=== PATIENT | female | born 1975 | race Caucasian/White ===

== ENCOUNTER → 2016-09-29 | Outpatient (CLI) | payer MEDICAID ==
--- NOTE | 2016-09-30 15:58 | XR ---
EXAMINATION TYPE: XR femur RT DATE OF EXAM: 09/29/2016 CLINICAL HISTORY: pain TECHNIQUE: Two views of the right femur are obtained. COMPARISON: None. FINDINGS: There is no acute fracture or dislocation seen of the femur. The hip and knee joints appear within normal limits. The overlying soft tissue appears unremarkable. IMPRESSION: There is no acute fracture or dislocation seen of the femur. ICD 10 NO FRACTURE, INITIAL EVALUATION
== END | disposition home or self-care (01) ==
LOC: RADXRYALE 08:36
PROVIDERS: ATTEND Physician Assistant Medical
DX: S89.91XA Unspecified injury of right lower leg, initial encounter (principal); X58.XXXA Exposure to other specified factors, initial encounter

== ENCOUNTER → 2018-03-22 | Outpatient (CLI) | payer MEDICAID ==
--- NOTE | 2018-03-23 14:39 | MM ---
Reason for exam: screening (asymptomatic). Last mammogram was performed 3 years and 2 months ago. History: Benign excisional biopsy of the right breast, 1998. Physical Findings: A clinical breast exam by your physician is recommended on an annual basis and results should be correlated with mammographic findings. MG Screening Mammo w CAD Bilateral CC and MLO view(s) were taken. Prior study comparison: January 28, 2015, bilateral MG screening mammo w CAD. The breast tissue is heterogeneously dense. This may lower the sensitivity of mammography. There is no discrete abnormality. No significant changes when compared with prior studies. ASSESSMENT: Negative, BI-RAD 1 RECOMMENDATION: Routine screening mammogram of both breasts in 1 year.
== END | disposition home or self-care (01) ==
LOC: RADMAMWWP 16:47
PROVIDERS: ATTEND Obstetrics & Gynecology
DX: Z12.31 Encounter for screening mammogram for malignant neoplasm of breast (principal)
CPT/HCPCS: 77067

== ENCOUNTER → 2018-12-19 | Outpatient (CLI) | payer MEDICAID ==
--- NOTE | 2018-12-20 08:49 | XR ---
EXAMINATION TYPE: XR ribs RT w pa chest xray DATE OF EXAM: 12/19/2018 CLINICAL HISTORY: Cough and intercostal chest pain. TECHNIQUE: Single frontal view of the chest is obtained. 2 views of the right ribs were also obtained . COMPARISON: 05/18/2013 FINDINGS: There is no focal air space opacity, pleural effusion, or pneumothorax seen. The cardiac silhouette size is within normal limits. No acute displaced rib fracture nor callous healed rib fract ure deformity is seen. Mild dextroscoliosis of the thoracic spine and levoscoliosis of the thoracolum bar junction is noted, which could be positional. IMPRESSION: 1. No focal consolidation to suggest pneumonia. 2. No acute displaced right rib fracture nor calyceal fracture deformity. 3. Incidentally noted mild S-shaped scoliosis of the visualized thoracolumbar spine.
== END | disposition home or self-care (01) ==
LOC: RADXRYALE 14:05
PROVIDERS: ATTEND Physician Assistant Medical
DX: R05 Cough (principal); R07.82 Intercostal pain; R07.9 Chest pain, unspecified

== ENCOUNTER 2019-07-20 14:35 | Observation (INO) | payer MEDICAID ==
--- NOTE | 2019-07-20 15:46 | XR ---
EXAMINATION TYPE: XR chest 2V DATE OF EXAM: 07/20/2019 COMPARISON: NONE HISTORY: Chest pain TECHNIQUE: Frontal and lateral views of the chest are obtained. FINDINGS: There is no focal air space opacity. No evidence for pneumothorax. No pleural effusion. The cardiac silhouette size is within normal limits. The osseous structures are grossly intact. IMPRESSION: 1. No acute cardiopulmonary process.
[2019-07-20 16:07] LABS: Basophils % (A) 1 %; Eosinophils # (A) 0.1 k/uL (0-0.7); Eosinophils % (A) 1 %; HCT 47.3 % (34.0-46.0); HGB 15.3 gm/dL (11.4-16.0); Lymphocytes # (A) 2.1 k/uL (1.0-4.8); Lymphocytes % (A) 30 %; MCH 30.8 pg (25.0-35.0); MCHC 32.3 g/dL (31.0-37.0); MCV 95.4 fL (80.0-100.0); Mean Platelet Volume 7.3; Monocytes # (A) 0.3 k/uL (0-1.0); Monocytes % (A) 5 %; Neutrophils # (A) 4.2 k/uL (1.3-7.7); Neutrophils % (A) 62 %; Platelet Count 307 k/uL (150-450); RBC 4.95 m/uL (3.80-5.40); WBC 6.8 k/uL (3.8-10.6)
[2019-07-20 16:16] LABS: ALT 41 U/L (4-34); AST 29 U/L (14-36); African American GFR (CKD) >90 (>60 ml/min/1.73 sqM); Albumin 4.8 g/dL (3.5-5.0); Alkaline Phosphatase 74 U/L (38-126); Anion Gap 7 mmol/L; Blood Urea Nitrogen 20 mg/dL (7-17); Calcium 10.1 mg/dL (8.4-10.2); Carbon Dioxide 31 mmol/L (22-30); Chloride 103 mmol/L (98-107); Glucose 87 mg/dL (74-99); Magnesium 2.1 mg/dL (1.6-2.3); Non-African American GFR(CKD) >90 (>60 ml/min/1.73 sqM); Potassium 3.9 mmol/L (3.5-5.1); Sodium 141 mmol/L (137-145); Total Bilirubin 0.5 mg/dL (0.2-1.3); Total Protein 7.8 g/dL (6.3-8.2)
--- NOTE | 2019-07-20 16:19 | ED ---
Chest Pain HPI - General Chief Complaint: Chest Pain Stated Complaint: lung pain Time Seen by Provider: 07/20/19 15:09 Source: patient, RN notes reviewed, old records reviewed Mode of arrival: ambulatory Limitations: no limitations - History of Present Illness Initial Comments: This is a 44-year-old female DF for evaluation. She presents today for eval uation of chest. Patient also admits to some anxiety concern that she may have been exposed or has coronavirus. Patient has no medical history patient has no history of heart disease but she is also concerned that she has a problem with her heart today. She states her family male with family history. No current fevers no cough no shortness of breath MD Complaint: chest pain -: hour(s) Onset: during rest, during exertion Pain Location: left chest Pain Radiation: LUE Severity: moderate Severity scale (1-10): 7 Quality: sharp Consistency: constant Improves With: nothing Worsens With: exertion, inspiration Anginal Symptoms: nausea, dyspnea Other Symptoms: cough Treatments Prior to Arrival: none - Related Data Home Medications Medication Instructions Recorded Confirmed Acetaminophen Tab [Tylenol] 325 mg PO ONCE PRN 07/20/19 07/20/19 traZODone HCL 50 mg PO HS 07/20/19 07/20/19 Previous Rx's Medication Instructions Recorded Atorvastatin [Lipitor] 20 mg PO HS #30 tab 07/21/19 Hydrochlorothiazide [Hydrodiuril] 25 mg PO DAILY #30 tab 07/21/19 Lisinopril [Zestril] 20 mg PO DAILY #30 tab 07/21/19 Allergies Allergy/AdvReac Type Severity Reaction Status Date / Time pentazocine [From Talwin] Allergy Rash/Hives Verified 07/20/19 16:18 tramadol [From Ultram] AdvReac Nausea & Verified 07/20/19 16:18 Vomiting Review of Systems ROS Statement: Those systems with pertinent positive or pertinent negative responses have been documented in the HPI. ROS Other: All systems not noted in ROS Statement are negative. EKG Findings - EKG Comments: EKG Findings:: EKG shows sinus rhythm of 89, AL 146, QRS 80, QTC 4:30 Past Medical History Past Medical History: Hypertension History of Any Multi-Drug Resistant Organisms: None Reported Past Surgical History: Back Surgery, Tubal Ligation Additional Past Surgical History / Comment(s): right breast biopsy, abdominal surgery for ovarian cyst Past Psychological History: Anxiety Smoking Status: Never smoker Past Alcohol Use History: None Reported Past Drug Use History: None Reported - Past Family History Mother Family Medical History: Hypertension Additional Family Medical History / Comment(s): lung cancer Father Family Medical History: Hypertension Additional Family Medical History / Comment(s): prostate cancer, depression General Exam Limitations: no limitations General appearance: alert, in no apparent distress, anxious Head exam: Present: atraumatic, normocephalic, normal inspection Eye exam: Present: normal appearance, PERRL, EOMI. Absent: scleral icterus, conjunctival injection, periorbital swelling ENT exam: Present: normal exam, mucous membranes moist Neck exam: Present: normal inspection. Absent: tenderness, meningismus, lymphadenopathy Respiratory exam: Present: normal lung sounds bilaterally. Absent: respiratory distress, wheezes, rales, rhonchi, stridor Cardiovascular Exam: Present: regular rate, normal rhythm, normal heart sounds. Absent: systolic murmur, diastolic murmur, rubs, gallop, clicks GI/Abdominal exam: Present: soft, normal bowel sounds. Absent: distended, tenderness, guarding, rebound, rigid Extremities exam: Present: normal inspection, full ROM, normal capillary refill. Absent: tenderness, pedal edema, joint swelling, calf tenderness Back exam: Present: normal inspection Neurological exam: Present: alert, oriented X3, CN II-XII intact Psychiatric exam: Present: normal affect, normal mood Skin exam: Present: warm, dry, intact, normal color. Absent: rash Course Vital Signs 07/20/19 07/20/19 07/20/19 14:51 15:16 15:58 Temperature 98.3 F Pulse Rate 94 86 90 Pulse Rate [ Pulse Oximetery ] Respiratory 18 18 18 Rate Blood Pressure 178/99 156/107 182/107 Blood Pressure [Left Arm] O2 Sat by Pulse 100 98 98 Oximetry 07/20/19 07/20/19 07/20/19 17:19 18:20 19:09 Temperature 98.5 F Pulse Rate 88 84 89 Pulse Rate [ Pulse Oximetery ] Respiratory 18 16 17 Rate Blood Pressure 138/98 167/101 157/99 Blood Pressure [Left Arm] O2 Sat by Pulse 96 99 98 Oximetry 07/20/19 07/20/19 19:55 20:00 Temperature 98.2 F Pulse Rate 78 Pulse Rate [ 72 Pulse Oximetery ] Respiratory 16 18 Rate Blood Pressure 141/104 Blood Pressure 142/105 [Left Arm] O2 Sat by Pulse 99 98 Oximetry - Reevaluation(s) Reevaluation #1: Medical record is reviewed Patient has persistent chest pain currently Patient given off her to stay in the hospital for observation, she is not comfortable with discharge home Chest Pain MDM - MDM 44 female to the ER does have chest pain currently. Chest is resolved. Computed tomography scan troponin, EKG are negative [place] for cardiac observation Critical Care Time Critical Care Time: Yes Total Critical Care Time: 31 Disposition Clinical Impression: Chest pain Disposition: ADMITTED IP TO THIS HOSP Condition: Stable Is patient prescribed a controlled substance at d/c from ED?: No
[2019-07-20] MEDS ORDERED: SODIUM CHLORIDE 0.9% 1,000 ML IV STA (16:20)
[2019-07-20 16:21] LABS: D-Dimer 0.22 mg/L FEU (<0.60); INR 0.9 (<1.2); Partial Thromboplastin Time 24.3 sec (22.0-30.0); Prothrombin Time 9.6 sec (9.0-12.0)
--- NOTE | 2019-07-20 16:48 | CT ---
CT CHEST FOR PULMONARY EMBOLISM. EXAMINATION TYPE: CT angio chest DATE OF EXAM: 07/20/2019 INDICATION: Chest pain, hypertension CT DLP: 200.3 mGycm, Automated exposure control for dose reduction was used. CONTRAST: Patient injected with 80 mL of Isovue 370. COMPARISON: None TECHNIQUE: CT of the chest is performed on a spiral scan at 2 mm thick sections. Study is performed with intravenous contrast timed for evaluation for pulmonary embolism. This will limit additional po rtions of the evaluation. 3-D MIP images reconstructed by the technologist are reviewed on the compu ter in the coronal and sagittal planes. FINDINGS: No persistent filling defects are evident to suggest an acute pulmonary embolism. No mediastinal or hilar adenopathy enlarged by CT criteria is evident. The ascending aorta diameter at the level of the main pulmonary artery is 3.4 cm. The main pulmonary artery diameter at the bifur cation is 2.6 cm. Lung windows are clear. Limited CT section through the upper abdomen are unremarkable. IMPRESSIONS: 1. No acute pulmonary embolism. 2. CTA chest is normal.
[2019-07-20] MEDS ORDERED: ASPIRIN 81 MG PO STA (18:42)
[2019-07-20] MEDS ORDERED: NITROGLYCERIN SL TABS 0.4 MG TAB SUBLINGUAL PRN (18:42)
[2019-07-20] MEDS ORDERED: METOPROLOL TARTRATE 50 MG TAB PO SCH (21:00)
[2019-07-21 00:52] VITALS: TEMP 98
[2019-07-21 04:35] LABS: Cholesterol 176 mg/dL (<200); HDL Cholesterol 54 mg/dL (40-60); LDL Cholesterol,Calculated 102 mg/dL (0-99); Triglycerides 99 mg/dL (<150)
[2019-07-21] MEDS ORDERED: ATORVASTATIN 20 MG TAB PO SCH (09:00)
[2019-07-21] MEDS ORDERED: HYDROCHLOROTHIAZIDE 25 MG TAB PO SCH (09:00)
[2019-07-21] MEDS ORDERED: ASPIRIN 325 MG TAB PO SCH (09:00)
[2019-07-21] MEDS ORDERED: LISINOPRIL 20 MG TAB PO SCH (09:00)
[2019-07-21 12:44] VITALS: BP 143/94; PULSE 66; RESP 18
--- NOTE | 2019-07-21 14:25 | P.CRDCN ---
History of Present Illness History of present illness: This is Dr. Arevalo dictating a consult on this patient The patient was interviewed and examined by me IMPRESSION / ASSESSMENT: Patient admitted with chest discomfort with normal cardiac enzymes normal first EKG Elevated blood pressure readings history of hypertension Mildly increased LDL Never smoker PLAN: Hypertension management, continue lisinopril 20 mg by mouth daily Add hydrochlorothiazide Start atorvastatin 20 mg by mouth daily Discontinue metoprolol Switched to baby aspirin Outpatient reevaluation with Dr. Dr. Arevalo for blood pressure management Further cardiac workup HPI 44-year-old female with hypertension admitted from the ER with a history of chest discomfort Chest x-ray was normal chest CT was normal Subsequently blood pressure 148/89 and 141/85 mmHg ROS: No fever chills or rigors, no cough, phlegm or expectoration, no nausea, vomiting or diarrhea, no hematuria, dysuria, no musculoskeletal complaints, no strokes or seizures, no skin lesions. EXAMINATION: 141/85, pulse rate in the 60s afebrile normal respirations Patient resting comfort no orthopnea PND No JVD Breath soundles Normal heart Extremities warm no shi REVIEW OF LABS, ECG & MEDICAL DATA Normal white count, hematocrit 47, platelet count 307,000 Coronavirus PCR not detected LDL 102, HDL 54 total cholesterol 176 triglycerides 99 Sodium 141 BUN 20 creatinine 0.65 Normal cardiac enzymes 3 Normal liver function Normal chest x-ray Normal chest CT EKG shows sinus mechanism normal CO narrow QRS early repolarization abnormality inferolaterally Past Medical History Past Medical History: Asthma, Chest Pain / Angina, GERD/Reflux, Hypertension, Pneumonia Additional Past Medical History / Comment(s): history of migrains History of Any Multi-Drug Resistant Organisms: None Reported Past Surgical History: Back Surgery, Tubal Ligation Additional Past Surgical History / Comment(s): right breast biopsy, abdominal surgery for ovarian cyst, surgery for cyst in right heel. Additional Past Anesthesia/Blood Transfusion Reaction / Comment(s): never had a blood transfusion Past Psychological History: Anxiety Smoking Status: Never smoker Past Alcohol Use History: None Reported Past Drug Use History: None Reported - Past Family History Mother Family Medical History: Hypertension Additional Family Medical History / Comment(s): lung cancer Father Family Medical History: Hypertension Additional Family Medical History / Comment(s): prostate cancer, depression Medications and Allergies Home Medications Medication Instructions Recorded Confirmed Type Acetaminophen Tab [Tylenol] 325 mg PO ONCE PRN 07/20/19 07/20/19 History traZODone HCL 50 mg PO HS 07/20/19 07/20/19 History Atorvastatin [Lipitor] 20 mg PO HS #30 tab 07/21/19 Rx Hydrochlorothiazide [Hydrodiuril] 25 mg PO DAILY #30 tab 07/21/19 Rx Lisinopril [Zestril] 20 mg PO DAILY #30 tab 07/21/19 Rx Allergies Allergy/AdvReac Type Severity Reaction Status Date / Time pentazocine [From Talwin] Allergy Rash/Hives Verified 07/20/19 16:18 tramadol [From Ultram] AdvReac Nausea & Verified 07/20/19 16:18 Vomiting Physical Exam Vitals: Vital Signs Temp Pulse Pulse Resp BP BP Pulse Ox 07/21/19 04:00 98.0 F 61 15 141/85 97 07/21/19 00:00 98.0 F 61 15 148/89 98 07/20/19 20:00 78 18 141/104 98 07/20/19 19:55 98.2 F 72 16 142/105 99 07/20/19 19:09 89 17 157/99 98 07/20/19 18:20 98.5 F 84 16 167/101 99 07/20/19 17:19 88 18 138/98 96 07/20/19 15:58 90 18 182/107 98 07/20/19 15:16 86 18 156/107 98 07/20/19 14:51 98.3 F 94 18 178/99 100 Intake and Output 07/20/19 07/21/19 07/21/19 22:59 06:59 14:59 Other: Voiding Method Toilet # Voids 1 1 Weight 50.802 kg 52.4 kg Results 07/20/19 15:54 07/20/19 15:54 Cardiac Enzymes 07/20/19 07/20/19 07/20/19 Range/Units 15:54 15:54 22:43 AST 29 (14-36) U/L Troponin I <0.012 <0.012 (0.000-0.034) ng/mL 07/21/19 Range/Units 03:39 AST (14-36) U/L Troponin I <0.012 (0.000-0.034) ng/mL Coagulation 07/20/19 Range/Units 15:54 PT 9.6 (9.0-12.0) sec APTT 24.3 (22.0-30.0) sec Lipids 07/21/19 Range/Units 03:39 Triglycerides 99 (<150) mg/dL Cholesterol 176 (<200) mg/dL HDL Cholesterol 54 (40-60) mg/dL CBC 07/20/19 Range/Units 15:54 WBC 6.8 (3.8-10.6) k/uL RBC 4.95 (3.80-5.40) m/uL Hgb 15.3 (11.4-16.0) gm/dL Hct 47.3 H (34.0-46.0) % Plt Count 307 (150-450) k/uL Comprehensive Metabolic Panel 07/20/19 Range/Units 15:54 Sodium 141 (137-145) mmol/L Potassium 3.9 (3.5-5.1) mmol/L Chloride 103 (98-107) mmol/L Carbon Dioxide 31 H (22-30) mmol/L BUN 20 H (7-17) mg/dL Creatinine 0.65 (0.52-1.04) mg/dL Glucose 87 (74-99) mg/dL Calcium 10.1 (8.4-10.2) mg/dL AST 29 (14-36) U/L ALT 41 H (4-34) U/L Alkaline Phosphatase 74 (38-126) U/L Total Protein 7.8 (6.3-8.2) g/dL Albumin 4.8 (3.5-5.0) g/dL Current Medications Generic Name Dose Route Start Last Admin Trade Name Freq PRN Reason Stop Dose Admin Aspirin 325 mg 07/21/19 09:00 Aspirin PO DAILY [facility] Atorvastatin Calcium 20 mg 07/21/19 09:00 Lipitor PO DAILY [facility] Metoprolol Tartrate 50 mg 07/20/19 21:00 07/20/19 22:02 Lopressor PO 50 mg BID [facility] Administration Nitroglycerin 0.4 mg 07/20/19 18:42 Nitrostat SUBLINGUAL Q5M PRN Chest Pain Intake and Output 07/20/19 07/21/19 07/21/19 22:59 06:59 14:59 Other: Voiding Method Toilet # Voids 1 1 Weight 50.802 kg 52.4 kg 07/20/19 15:54 07/20/19 15:54
--- NOTE | 2019-07-30 12:47 | P.HPIM ---
History of Present Illness H&P Date: 07/21/19 Chief Complaint: Chest pain Patient is a 44-year-old female with a known history of asthma, hypertension, GERD and history of chest pain and anxiety came to ER with the complaints of chest discomfort mainly right upper chest and across the upper chest and to the arms. Chest pain was associated with minimal shortness of breath. Denied any dizziness or lightheadedness. Patient felt nauseous. No diaphoresis. No leg swelling. No history of prior stent placement. Blood pressure was elevated with SBP in 180s on admission. Denied any complaints of fever. No cough or sputum production. Denied any exposure to sick Patients. No history of recent travel. Chest x-ray showed no acute cardio pulmonary process. CT angiogram showed no pulmonary embolism. Troponin 3 negative EKG showed normal sinus rhythm with sinus arrhythmia. LDL is 102 Covid 19 PCR is negative. D-dimer is not elevated. Review of Systems Constitutional: Patient denies any fever or chills . No generalized weakness or weight loss. Abdomen: Patient denied nausea vomiting and diarrhea and abdominal pain. Cardiovascular: Patient does have a right-sided chest pain. No short of breath no palpitations. Respiratory: patient denied any cough is from production. No shortness of breath Neurologic: Patient denied any numbness or tingling headache. Musculoskeletal: Patient denies any complaints of joint swelling or deformity. Skin: Negative Psychiatric: Negative Endocrine: No heat or cold intolerance. No recent weight gain. Genitourinary: No dysuria or hematuria. All other 14 point ROS negative except the above Past Medical History Past Medical History: Asthma, Chest Pain / Angina, GERD/Reflux, Hypertension, Pneumonia Additional Past Medical History / Comment(s): history of migrains History of Any Multi-Drug Resistant Organisms: None Reported Past Surgical History: Back Surgery, Tubal Ligation Additional Past Surgical History / Comment(s): right breast biopsy, abdominal surgery for ovarian cyst, surgery for cyst in right heel. Additional Past Anesthesia/Blood Transfusion Reaction / Comment(s): never had a blood transfusion Past Psychological History: Anxiety Smoking Status: Never smoker Past Alcohol Use History: None Reported Past Drug Use History: None Reported - Past Family History Mother Family Medical History: Hypertension Additional Family Medical History / Comment(s): lung cancer Father Family Medical History: Hypertension Additional Family Medical History / Comment(s): prostate cancer, depression Medications and Allergies Home Medications Medication Instructions Recorded Confirmed Type Acetaminophen Tab [Tylenol] 325 mg PO ONCE PRN 07/20/19 07/20/19 History traZODone HCL 50 mg PO HS 07/20/19 07/20/19 History Atorvastatin [Lipitor] 20 mg PO HS #30 tab 07/21/19 Rx Hydrochlorothiazide [Hydrodiuril] 25 mg PO DAILY #30 tab 07/21/19 Rx Lisinopril [Zestril] 20 mg PO DAILY #30 tab 07/21/19 Rx Allergies Allergy/AdvReac Type Severity Reaction Status Date / Time pentazocine [From Talwin] Allergy Rash/Hives Verified 07/20/19 16:18 tramadol [From Ultram] AdvReac Nausea & Verified 07/20/19 16:18 Vomiting Physical Exam Vitals: Vital Signs Temp Pulse Pulse Resp BP BP Pulse Ox 07/21/19 08:00 77 17 138/89 99 07/21/19 04:00 98.0 F 61 15 141/85 97 07/21/19 00:00 98.0 F 61 15 148/89 98 07/20/19 20:00 78 18 141/104 98 07/20/19 19:55 98.2 F 72 16 142/105 99 07/20/19 19:09 89 17 157/99 98 07/20/19 18:20 98.5 F 84 16 167/101 99 07/20/19 17:19 88 18 138/98 96 07/20/19 15:58 90 18 182/107 98 07/20/19 15:16 86 18 156/107 98 07/20/19 14:51 98.3 F 94 18 178/99 100 Intake and Output 07/20/19 07/21/19 07/21/19 22:59 06:59 14:59 Other: Voiding Method Toilet # Voids 1 1 Weight 50.802 kg 52.4 kg PHYSICAL EXAMINATION: Patient is lying in the bed comfortably, no acute distress, awake alert and oriented.. HEENT: Normocephalic. Neck is supple. Pupils reactive. Nostrils clear. Oral cavity is moist. Ears reveal no drainage. Neck reveals no JVD, carotid bruits, or thyromegaly. CHEST EXAMINATION: Trachea is central. Symmetrical expansion. Lung [place] clear to auscultation and percussion. CARDIAC: Normal S1, S2 with no gallops. No murmurs ABDOMEN: Soft. Bowel sounds normal. No organomegaly. No abdominal bruits. Extremities: reveal no edema. No clubbing or cyanosis Neurologically awake, alert, oriented x3 with well-coordinated movements. No focal deficits noted Skin: No rash or skin lesions. Psychiatric: Coperative. Nonsuicidal Musculoskeletal: No joint swelling or deformity. Normal range of motion. Results CBC & Chem 7: 07/20/19 15:54 07/20/19 15:54 Labs: Abnormal Lab Results - Last 24 Hours (Table) 07/20/19 07/20/19 07/21/19 Range/Units 15:54 15:54 03:39 Hct 47.3 H (34.0-46.0) % Carbon Dioxide 31 H (22-30) mmol/L BUN 20 H (7-17) mg/dL ALT 41 H (4-34) U/L LDL Cholesterol, Calc 102 H (0-99) mg/dL Thrombosis Risk Factor Assmnt - DVT/VTE Prophylaxis DVT/VTE Prophylaxis: Pharmacologic Prophylaxis ordered - Choose All That Apply Any of the Below Risk Factors Present?: Yes Each Factor Represents 1 point: or Other Risk Factors: No Other congenital or acquired thrombophilia - If yes, enter type in comment: No Thrombosis Risk Factor Assessment Total Risk Factor Score: 1 Thrombosis Risk Factor Assessment Level: Low Risk Assessment and Plan Assessment: Atypical chest pain/discomfort ruled out ACS. Uncontrolled hypertension Hyperlipidemia with LDL 102. GERD Asthma. Stable DVT prophylaxis with heparin subcu Anxiety No history of prior smoking Plan: Patient is being continued on telemetry monitoring. Continue with home dose of this 20 mg daily and added hydrochlorothiazide. Cardiology was consulted. Patient was started on aspirin 81 mg daily. Troponin 3 negative and d-dimer is not elevated. CT angiogram is negative as well. Further recommendations based on the clinical course. Titrate blood pressure medications. Time with Patient: Greater than 30
--- NOTE | 2019-07-30 12:49 | P.DS ---
Providers Date of admission: 07/20/19 18:44 Expected date of discharge: 07/20/18 Attending physician: Kenya Quan Consults: 07/20/19 18:43 Consult Physician Urgent Consulting Provider: Bev Taylor Consult Reason/Comments: cp Do you want consulting provider notified?: Yes [facility] Course: Discharge diagnosis Atypical chest pain/discomfort ruled out ACS. Uncontrolled hypertension Hyperlipidemia with LDL 102. GERD Asthma. Stable DVT prophylaxis with heparin subcu Anxiety No history of prior smoking Hospital course Patient is a 44-year-old female with a known history of asthma, hypertension, GERD and history of chest pain and anxiety came to ER with the complaints of chest discomfort mainly right upper chest and across the upper chest and to the arms. Chest pain was associated with minimal shortness of breath. Denied any dizziness or lightheadedness. Patient felt nauseous. No diaphoresis. No leg swelling. No history of prior stent placement. Blood pressure was elevated with SBP in 180s on admission. Denied any complaints of fever. No cough or sputum production. Denied any exposure to sick Patients. No history of recent travel. Chest x-ray showed no acute cardio pulmonary process. CT angiogram showed no pulmonary embolism. Troponin 3 negative EKG showed normal sinus rhythm with sinus arrhythmia. LDL is 102 Covid 19 PCR is negative. D-dimer is not elevated. Patient was continued on telemetry monitoring. Serial EKGs and troponin 3 negative. Added hydrochlorothiazide on top of lisinopril. Was also started on atorvastatin. Patient is currently chest pain-free. Blood pressure is better controlled. Patient was seen by cardiology and treatments to follow-up as outpatient. Patient is being discharged home. Discharge medications reviewed and Discharge physical examination was done and vitals reviewed. Patient Condition at Discharge: Stable Plan - Discharge Summary Discharge Rx Participant: No New Discharge Prescriptions: New Hydrochlorothiazide [Hydrodiuril] 25 mg PO DAILY #30 tab Atorvastatin [Lipitor] 20 mg PO HS #30 tab Lisinopril [Zestril] 20 mg PO DAILY #30 tab Continue Acetaminophen Tab [Tylenol] 325 mg PO ONCE PRN PRN Reason: Pain traZODone HCL 50 mg PO HS Discontinued Lisinopril [Zestril] 20 mg PO HS Discharge Medication List Acetaminophen Tab [Tylenol] 325 mg PO ONCE PRN 07/20/19 [History] traZODone HCL 50 mg PO HS 07/20/19 [History] Atorvastatin [Lipitor] 20 mg PO HS #30 tab 07/21/19 [Rx] Hydrochlorothiazide [Hydrodiuril] 25 mg PO DAILY #30 tab 07/21/19 [Rx] Lisinopril [Zestril] 20 mg PO DAILY #30 tab 07/21/19 [Rx] Follow up Appointment(s)/Referral(s): Lamont Arevalo MD [STAFF PHYSICIAN] - 3 Days (Call during normal business hours to schedule follow-up appointment.) Hilton Kathleen DO [Primary Care Provider] - 1-2 days (Call during normal business hours to schedule follow-up appointment.) Patient Instructions/Handouts: Chest Pain (ED) Discharge Disposition: HOME SELF-CARE
== END 2019-07-21 13:39 | disposition home or self-care (01) ==
LOC: EC 14:35 → 3SCARD 18:44
PROVIDERS: ADMIT Hospitalist; ATTEND Hospitalist
DX: R07.89 Other chest pain (principal); I10 Essential (primary) hypertension; J45.909 Unspecified asthma, uncomplicated; E78.5 Hyperlipidemia, unspecified; F41.9 Anxiety disorder, unspecified; K21.9 Gastro-esophageal reflux disease without esophagitis; Z79.899 Other long term (current) drug therapy; Z80.1 Family history of malignant neoplasm of trachea, bronchus and lung; Z81.8 Family history of other mental and behavioral disorders; Z82.49 Family history of ischemic heart disease and other diseases of the circulatory system; Z03.818 Encounter for observation for suspected exposure to other biological agents ruled out; Z88.6 Allergy status to analgesic agent; Z88.5 Allergy status to narcotic agent
CPT/HCPCS: 93005 ×2; 96360; 99291; 36415; 85379; 83880; 80061; 80053; 83690; 83735; 84484 ×2; 85025; 85610; 85730; 87635; 71046; 71275; G0378 ×2; Q9967

== ENCOUNTER → 2021-04-21 | Outpatient (CLI) | payer MEDICAID ==
--- NOTE | 2021-04-21 23:46 | MR ---
EXAMINATION TYPE: MR brain wo/w con DATE OF EXAM: 04/21/2021 COMPARISON: NONE HISTORY: 46-year-old female Transient visual loss, dizziness, headaches. H53.129 I10 R41.9 R42 R51.9 TECHNIQUE: Multiplanar, multisequence images of the brain and brainstem were acquired before and aft er administration of 5 mL IV Gadavist. Diffusion weighted imaging is performed. FINDINGS: No evidence for acute infarction, hemorrhage, mass, mass effect, midline shift, herniation, effacemen t of basal cisterns, or extra-axial fluid collection. The ventricles and sulci are age-appropriate. Major intracranial flow voids are intact. T2/FLAIR weighted sequences show mild scattered foci of bright white matter change primarily in the b ifrontal subcortical regions and a few within either the periventricular or parietal subcortical matias ons. 7 approximately 5-10 foci on the left, largest measuring 7 mm. Approximately 5-10 foci in the ri ght measuring up to 3 mm. Midline structures demonstrate normal morphology. The craniocervical junction is normal. Subtle tangle of vessels in the anterior right frontal white matter, post contrast axial image 17, sa gittal image 93, and coronal image 13. Otherwise, post contrast images demonstrate no evidence of pat hologic enhancement. Dural venous sinuses are patent. Trace mucosal thickening ethmoid air cells. Globes are intact. IMPRESSION: 1. No acute intracranial abnormality seen. 2. Chronic T2 bright white matter change with mild overall burden. Some considerations include somew hat premature chronic small vessel ischemic disease, chronic hypertension, sequela of chronic migrain es, or demyelinating disease. Clinically correlate. 3. Suspect a subtle venous angioma within the right frontal white matter. Otherwise, no suspicious en hancing lesions.
== END | disposition home or self-care (01) ==
LOC: RADMRIMAIN 10:50
PROVIDERS: ATTEND Family Medicine
DX: G93.89 Other specified disorders of brain (principal); I10 Essential (primary) hypertension; H53.129 Transient visual loss, unspecified eye
CPT/HCPCS: 70553; A9585

== ENCOUNTER → 2021-05-20 | Outpatient (CLI) | payer MEDICAID ==
--- NOTE | 2021-05-21 03:25 | MR ---
EXAMINATION TYPE: MR cspine/tspine wo/w con DATE OF EXAM: 05/20/2021 COMPARISON: None HISTORY: Neck pain, lightheadedness, blurred vision. Evaluate for MS lesions. CONTRAST: Standard multiplanar, multisequence MRI departmental protocol images were obtained without contrast a nd with 5 mL intravenous Gadavist gadolinium contrast. The cervical vertebra show some mild straightening. Disc spaces are normal. There is a mild posterior disc bulge at C5-6. There is developmentally adequate spinal canal and no significant spinal stenosi s. The canal measures 10 mm at C5-6 which is the narrowest point. The brainstem is intact. Cervical s tomi cord shows normal signal pattern. There is no edema. There is no cervical paraspinal mass. The posterior elements are intact. No compression fracture. The thoracic vertebra show a mild dextroscoliosis. 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 There is no compression fracture. There is no thoracic s tomi stenosis. Thoracic spinal cord has normal signal pattern. There is no edema. There is no thorac ic paraspinal mass. The contrast images show no pathologic enhancement. 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 No thoracic dis c herniation or spinal stenosis. No compression fracture. No significant abnormality of the cervical spine.
== END | disposition home or self-care (01) ==
LOC: RADMRIMAIN 18:01
PROVIDERS: ATTEND Psychiatry & Neurology Neurology
DX: M41.84 Other forms of scoliosis, thoracic region (principal); M54.2 Cervicalgia; H53.8 Other visual disturbances
CPT/HCPCS: 72156; 72157; A9585

== ENCOUNTER → 2021-11-02 | Outpatient (CLI) | payer MEDICAID ==
--- NOTE | 2021-11-03 05:34 | MR ---
EXAMINATION TYPE: MR brain wo/w con DATE OF EXAM: 11/02/2021 COMPARISON: None HISTORY: Follow up comparison to prior MRI. Some recent dizziness CONTRAST: Standard multiplanar, multisequence MRI departmental protocol images were obtained without contrast a nd with 5 mL intravenous Gadavist gadolinium contrast. Ventricles and sulci appear normal. There is no mass effect or midline shift. No sign of intracranial hemorrhage. Diffusion images show no evidence of an acute infarct. There are scattered white matter high signal foci which are relatively small in the hernandez-white matter junction both cerebral hemispher es on the FLAIR images. These measure up to 4 mm. There is normal enhancement of the venous sinuses. There is again noted a subtle area of slight enhancement measuring 7 mm in the right posterior fronta l lobe white matter. This could be vascular. Corpus callosum is intact. Sella turcica is normal. The brainstem is intact. No evidence of orbital m ass. IMPRESSION: Scattered small white matter foci are somewhat peripheral and could relate to microvascular ischemia. These appear not significantly different than the exam. Total number is less than 10. Small area of subtle enhancement right posterior frontal lobe white matter could be a venous angioma and not changed.
== END | disposition home or self-care (01) ==
LOC: RADMRIMAIN 15:10
PROVIDERS: ATTEND Psychiatry & Neurology Neurology
DX: G93.89 Other specified disorders of brain (principal); H53.8 Other visual disturbances
CPT/HCPCS: 70553; A9585

== ENCOUNTER → 2021-11-02 | Outpatient (CLI) | payer MEDICAID ==
--- NOTE | 2021-11-03 17:12 | MM ---
Reason for Exam: Screening (asymptomatic). Last mammogram was performed 3 year(s) and 8 month(s) ago. Patient History: Menarche at age 13. First Full-Term at age 27. Patient used Hormonal Contraceptives for 13 years. 1998, Benign Excisional Biopsy on the right side. Last menstrual period: Risk Values: Julieth 5 year model risk: 1.4%. NCI Lifetime model risk: 12.7%. Prior Study Comparison: 01/28/2015 Bilateral Screening Mammogram, [facility]. 02/06/2015 Left Diagnostic Ultrasound, [facility]. 03/22/2018 Bilateral Screening Mammogram, [facility]. Tissue Density: The breast tissue is heterogeneously dense. This may lower the sensitivity of mammography. Findings: Analyzed By CAD. There is no suspicious group of microcalcifications or new suspicious mass in either breast. Overall Assessment: Negative, BI-RAD 1 Management: Screening Mammogram of both breasts in 1 year. 1. Patient should continue monthly self breast exams. Note that the patient will benefit from 3-D mammograms given the breast density. 2. A clinical breast exam by your physician is recommended on an annual basis. 3. This exam should not preclude additional follow-up of suspicious palpable abnormalities. Electronically signed and approved by: Oliiva Emerson M.D. Radiologist
== END | disposition home or self-care (01) ==
LOC: RADMAMWWP 14:45
PROVIDERS: ATTEND Family Medicine
DX: Z12.31 Encounter for screening mammogram for malignant neoplasm of breast (principal)
CPT/HCPCS: 77067

== ENCOUNTER → 2021-12-29 | Outpatient (CLI) | payer MEDICAID ==
--- NOTE | 2021-12-29 09:52 | US ---
EXAMINATION TYPE: US pelvic complete DATE OF EXAM: 12/29/2021 COMPARISON: NONE CLINICAL HISTORY: R31.9 HEMATURIA, R10.813. Hematuria, pelvic pain, 2, para 2, history of ut erine ablation 2016, tubal ligation TECHNIQUE: . Transabdominal sonographic images of the pelvis were acquired. Date of LMP: 2015 EXAM MEASUREMENTS: Uterus: 7.5 x 3.7 x 4.6 cm Endometrial Stripe: 0.4 cm Right Ovary: 3.1 x 2.0 x 2.4 cm Left Ovary: 4.8 x 2.8 x 2.6 cm 1. Uterus: anteverted 2. Endometrium: appears wnl 3. Right Ovary: wnl 4. Left Ovary: 1.8cm cystic area 5. Bilateral Adnexa: wnl 6. Posterior cul-de-sac: wnl Anteverted uterus. Endometrial stripe not well seen correlates with history of ablation. No free flui d. Ovaries are symmetric and normal in size with few scattered peripheral follicles bilaterally. Dominan t 1.8 cm peripheral follicle left ovary present. No concerning adnexal masses. IMPRESSION: No suspicious adnexal masses. No free fluid.
--- NOTE | 2021-12-29 09:56 | US ---
EXAMINATION TYPE: US abdomen complete DATE OF EXAM: 12/29/2021 COMPARISON: NONE CLINICAL HISTORY: R31.9 HEMATURIA, R10.813. Hematuria TECHNIQUE: Multiple sonographic images of the abdomen are obtained. FINDINGS: EXAM MEASUREMENTS: Liver Length: 13.1 cm Gallbladder Wall: 0.3 cm CBD: 0.5 cm Spleen: 9.9 cm Right Kidney: 10.1 x 4.3 x 5.1 cm Left Kidney: 10.1 x 4.0 x 4.4 cm Pancreas: visualized portions wnl, limited by overlying midline bowel gas Liver: wnl Gallbladder: wnl Evidence for sonographic Gonzales's sign: no CBD: wnl Spleen: wnl Right Kidney: dilated renal pelvis Left Kidney: wnl Upper IVC: wnl Abd Aorta: wnl The liver is homogenous. The intrahepatic portion of the IVC and proximal , mid, and distal abdomina l aorta are within normal limits. There is no evidence of cholelithiasis. Common bile duct is unrem arkable. The visualized portions of the pancreas are homogenous. The spleen is unremarkable. Kidne ys are symmetric in size. Mild right-sided hydronephrosis is felt present seen best image 45. No ernesto al lesions are seen. IMPRESSION: Mild right-sided hydronephrosis. Further workup is advised as obstructing mass or calculu s needs to be considered in patient with hematuria. Advise CT follow-up.
== END | disposition home or self-care (01) ==
LOC: RADUSWWP 08:57
PROVIDERS: ATTEND Family Medicine
DX: N13.30 Unspecified hydronephrosis (principal); R31.9 Hematuria, unspecified; R10.813 Right lower quadrant abdominal tenderness
CPT/HCPCS: 76700; 76856

== ENCOUNTER → 2021-12-31 | Outpatient (CLI) | payer MEDICAID ==
--- NOTE | 2021-12-31 12:57 | CT ---
EXAMINATION TYPE: CT abdomen pelvis wo con DATE OF EXAM: 12/31/2021 HISTORY: RT lower abdominal pain and fluid around Rt Kidney CT DLP: 510 mGycm. Automated Exposure Control for Dose Reduction was Utilized. TECHNIQUE: CT scan of the abdomen and pelvis is performed without oral or IV contrast. COMPARISON: Ultrasound abdomen and pelvis December 29, 2021 FINDINGS: Within the limitations of a non-contrast study, the following observations are made. LUNG BASES: No significant abnormality is appreciated. LIVER/GB: No significant abnormality is appreciated. PANCREAS: No significant abnormality is seen. SPLEEN: No significant abnormality is seen. ADRENALS: No significant abnormality is seen. KIDNEYS: No renal calculus seen bilaterally on current study. No obvious hydronephrosis seen on CT to correlate with recent ultrasound. No intraluminal calculus in the bladder. BOWEL: No suspicious small or large bowel dilatation. GENITAL ORGANS: Anteverted uterus. Occasional scattered small pelvic phlebolith. Ovaries symmetric an d normal in size. There are 2 cystic lesions the left ovary largest measuring 1.7 cm axial image 82 t hought to correspond to prominent follicle or simple small ovarian cyst seen on recent ultrasound. LYMPH NODES: No greater than 1cm abdominal or pelvic lymph nodes are appreciated. OSSEOUS STRUCTURES: Postsurgical change L5-S1 level with bilateral posterior interpedicular rods and screws and artificial disc material is present. Alignment is satisfactory on sagittal images. Slight levoconvex scoliotic curvature centered at L2-L3 level is seen on coronal images. OTHER: No significant additional abnormality is seen. IMPRESSION: No renal stones or hydronephrosis is seen bilaterally on CT. No acute findings are eviden t.
== END | disposition home or self-care (01) ==
LOC: RADCTMAIN 12:21
PROVIDERS: ATTEND Family Medicine
DX: R10.31 Right lower quadrant pain (principal); R31.0 Gross hematuria; N13.30 Unspecified hydronephrosis; R93.41 Abnormal radiologic findings on diagnostic imaging of renal pelvis, ureter, or bladder; Z87.442 Personal history of urinary calculi
CPT/HCPCS: 74176

== ENCOUNTER → 2022-10-20 | Outpatient (CLI) | payer MEDICAID ==
--- NOTE | 2022-10-21 00:25 | MR ---
EXAMINATION TYPE: MR brain wo/w con DATE OF EXAM: 10/20/2022 COMPARISON: 11/02/2021 HISTORY: Blurred vision left side, Compare to MRI done 11-02-2021 CONTRAST: Performed utilizing 6 mL intravenous Gadavist gadolinium contrast. TECHNIQUE: Multiplanar, multiecho imaging on a 3.0 Frida magnet is performed through the brain. Stud y is performed within 24 hours of arrival to the hospital. The craniovertebral junction is normal. The pituitary is normal. Diffusion-weighted imaging is performed. No abnormal hyperintensity is present to suggest an acute i ntracranial infarct or acute ischemic change. There is some hyperintensity within the lower brainstem. This may be an interval change. This is not hyperintense on diffusion and is likely chronic this time. A few faint very fine punctate hyperintensities appear to be within the right frontal lobe and to les ser degree left frontal lobe. Ventricles and sulci are appropriate for the patient age. No abnormal enhancement is evident Following contrast administration a subtle venous angioma may be present within the posterior right f rontal lobe. This was present previously IMPRESSIONS: 1. Scattered punctate hyperintensities within the deep white matter of frontal lobes similar to citlalli rison. 2. There may be some new hyperintensity within the medullary brainstem which is an interval change. H owever, acute ischemic change is not evident at this location. 3. Subtle small venous angioma posterior right frontal lobe, stable.
== END | disposition home or self-care (01) ==
LOC: RADMRIMAIN 16:52
PROVIDERS: ATTEND Psychiatry & Neurology Neurology
DX: H53.8 Other visual disturbances (principal); R90.82 White matter disease, unspecified; Q28.3 Other malformations of cerebral vessels
CPT/HCPCS: 70553; A9585

== ENCOUNTER → 2022-12-09 | Outpatient (CLI) | payer MEDICAID ==
--- NOTE | 2022-12-09 21:37 | FL ---
EXAMINATION TYPE: FL barium swallow DATE OF EXAM: 12/09/2022 CLINICAL INDICATION: 47-year-old female R13.19, dysphagia, progressive throat clearing while eating a nd drinking, excessive phlegm. COMPARISON: None Total Fluoroscopy Time: 1 minute 50 seconds. 269.46 mGycm2 DAP 45 images obtained. FINDINGS: The swallowing mechanism is normal and hypopharyngeal anatomy is preserved. The cervical and thoracic portions have a normal course and caliber and normal motility. The mucosa is normal and no persistent filling defect is encountered. Some images suggest a tiny sliding hiatal hernia. However, no gastroesophageal reflux is seen. Within the stomach, there is suggestion of scattered small round filling defects. IMPRESSION: 1. A few images suggest the presence of a tiny sliding hiatal hernia. No gastroesophageal reflux or o ther specific abnormality identified on esophagram. 2. Images of the stomach suggest a number of hyperplastic polyps which may be seen with chronic gastr itis. Correlate with patient's symptoms. Direct visualization if clinically indicated.
== END | disposition home or self-care (01) ==
LOC: RADUSWWP 10:41
PROVIDERS: ATTEND Otolaryngology
DX: R13.19 Other dysphagia (principal)
CPT/HCPCS: 74220

== ENCOUNTER 2023-03-11 13:09 | Day surgery (SDC) | payer MEDICAID ==
[2023-03-09 09:21] VITALS: BMI 22.3
[~2023-03-11 13:09] MED LIST: LACTATED RINGERS 1,000 ML IV SCH; LIDOCAINE 1% (10MG/ML) FOR IV START INTRADERMA PRN
[2023-03-11 14:23] VITALS: RESP 16; TEMP 97.5
[2023-03-11] MEDS ORDERED: ONDANSETRON 4 MG/2 ML VIAL IVP ONE (14:26)
[2023-03-11] MEDS ORDERED: ONDANSETRON 4 MG/2 ML VIAL ONE (14:26)
[2023-03-11] MEDS ORDERED: fentaNYL (PF) 50 MCG/ML 2 ML AMP ONE (14:56)
[2023-03-11] MEDS ORDERED: LIDOCAINE 2% (PF) 20 MG/ML 5 ML VIAL ONE (14:56)
[2023-03-11] MEDS ORDERED: PROPOFOL 10 MG/ML 20 ML VIAL IV ONE (14:56)
--- NOTE | 2023-03-11 15:14 | P.PCN ---
Date of Procedure: 03/11/23 Procedure(s) Performed: BRIEF HISTORY: Patient is a 47-year-old, pleasant, at female scheduled for an upper endoscopy as a part of evaluation of chronic episodes of intermittent chest tightness for the last 1 year duration. She has occasional dysphagia to solids. PROCEDURE PERFORMED: Esophagogastroduodenoscopy with biopsy. PREOPERATIVE DIAGNOSIS: Chest tightness, chronic cough and intermittent choking episodes. IV sedation per anesthesia. PROCEDURE: After informed consent was obtained, the patient was brought into the endoscopy unit. IV sedation was administered by Anesthesia under continuous monitoring. Initially the Olympus GIF-140 video endoscope was inserted into the mouth. Esophagus intubated without any difficulty. It was gradually advanced into the stomach and duodenum and carefully examined. The bulb and the second part of the duodenum appeared normal. The scope at this time was withdrawn to the stomach, adequately insufflated with air, and upon careful examination, mucosa of the antrum, body, cardia and the fundus appeared normal. The scope was then withdrawn into the esophagus. Small hiatal hernia noted. The GE junction was located at 39 cm from the incisors. The widely patent distal esophageal Schatzki's ring identified that was dilated using 18-20 mm TTS balloon for 30 seconds. The esophagus appeared normal. Multiple biopsies were done from mid and distal esophagus to rule out eosinophilic esophagitis There were no erosions or ulcerations seen and the patient tolerated the procedure well. IMPRESSION: 1. Widely patent distal esophageal Schatzki's ring status post balloon dilation with 18-20 mm TTS balloon. 2. Small hiatal hiatal hernia but no evidence of esophagitis. RECOMMENDATIONS: The findings of this examination were discussed with the patient or less her family. She was advised to follow with the biopsy results. Liquid diet for 2 hours. Trial of omeprazole 20 mg daily half hour before dinnertime and follow anti reflux measures. If she has persistent symptoms 6 weeks she was advised to follow up in office..
[2023-03-11 16:02] VITALS: BP 101/63; PULSE 89
== END 2023-03-11 15:53 | disposition home or self-care (01) ==
LOC: ORWHC2ENDO 13:09
PROVIDERS: ATTEND Internal Medicine Gastroenterology
DX: K29.50 Unspecified chronic gastritis without bleeding (principal); K22.2 Esophageal obstruction; K44.9 Diaphragmatic hernia without obstruction or gangrene; I10 Essential (primary) hypertension; J45.909 Unspecified asthma, uncomplicated; F41.9 Anxiety disorder, unspecified; F32.A Depression, unspecified; G43.909 Migraine, unspecified, not intractable, without status migrainosus; Z79.899 Other long term (current) drug therapy; Z91.09 Other allergy status, other than to drugs and biological substances; Z91.040 Latex allergy status; Z88.8 Allergy status to other drugs, medicaments and biological substances; Z88.6 Allergy status to analgesic agent; Z79.51 Long term (current) use of inhaled steroids
CPT/HCPCS: 81025; 88305; 43239; 43249; J2405; J3010; J2704; J2001; C1726

== ENCOUNTER → 2023-05-06 | Outpatient (CLI) | payer BC ==
--- NOTE | 2023-05-06 16:53 | XR ---
EXAMINATION TYPE: XR Hip Complete RT DATE OF EXAM: 05/06/2023 COMPARISON: [id number] HISTORY: Right hip pain TECHNIQUE: 2 views submitted FINDINGS: There is no evidence of erosive change or acute fracture. Moderate hypertrophic arthropathy of the hi p. Diffuse osteopenia. Postsurgical changes lumbosacral spine. IMPRESSION: 1. Moderate right hip arthropathy. Correlate for femoral acetabular impingement.
== END | disposition home or self-care (01) ==
LOC: RADXRYALE 16:29
PROVIDERS: ATTEND Physician Assistant Medical
DX: M16.11 Unilateral primary osteoarthritis, right hip (principal)
CPT/HCPCS: 73502

== ENCOUNTER → 2024-03-08 | Outpatient (CLI) | payer BC ==
--- NOTE | 2024-03-08 15:35 | MR ---
EXAMINATION TYPE: MR brain wo/w con DATE OF EXAM: 03/08/2024 3:29 PM COMPARISON: 10/20/2022. CLINICAL INDICATION: Female, 48 years old with history of H53.8 OTHER VISUAL DISTURBANCES; PHH, Blurr ed vision both eyes TECHNIQUE: Multi planar, multi sequence imaging was performed through the brain including: T1, T2, In version recovery, susceptibility weighted imaging and gradient echo imaging and Diffusion weighted im aging. The patient was then given intravenous contrast and multi planar, T1 fat-saturation images wer e obtained. IV Contrast: 5 mL Gadobutrol FINDINGS: The hernandez-white junctions, ventricular system, basal cisterns appear unremarkable. Diffusion-weighted imaging shows no evidence of restricted diffusion to suggest acute/subacute infarct. Intracranial ar terial flow voids are maintained. Midline structures show no abnormality. Scattered foci of high T2 s ignal intensity are seen within the periventricular white matter. The susceptibility weighted images do not reveal any evidence for micro-hemorrhage. After administration of gadolinium, no abnormal enha ncement is seen. Right frontal lobe developmental venous anomaly versus vascular malformation with small blush of cont rast enhancement. Area on susceptibility weighted imaging measuring similarly at 6 mm. The bone marrow signal is within normal limits. Paranasal sinuses and mastoid air cells: No significant paranasal sinus disease. Visualized orbits: Orbital contents are intact. IMPRESSION: 1. No evidence of intracranial mass, acute/subacute infarct, or abnormal enhancement. 2. Right frontal lobe developmental venous normally versus vascular malformation. Unchanged from prio r. 3. scattered Nonspecific white matter changes, unchanged from prior, no evidence for active demyelina tion. [facility], , 03/08/2024 3:33 PM
== END | disposition home or self-care (01) ==
LOC: RADMRIMAIN 14:31
PROVIDERS: ATTEND Psychiatry & Neurology Neurology
DX: H53.8 Other visual disturbances (principal); R90.82 White matter disease, unspecified
CPT/HCPCS: 70553; A9585